=== PATIENT | male | born 1940 | race Caucasian/White ===

== ENCOUNTER 2025-04-02 18:52 | Inpatient (IN) | payer MEDICARE, OTHER ==
[~2025-04-02] VITALS: Ht 175.3 cm; Wt 55.3 kg
[2025-04-02] MEDS ORDERED: ONDANSETRON HCL/PF 4 MG/2 ML VIAL IVP PRN (22:30)
[2025-04-02] MEDS ORDERED: MAGNESIUM HYDROXIDE 30 ML UDC PO PRN (22:30)
[2025-04-02] MEDS ORDERED: MAG HYDROX/AL HYDROX/SIMETH 30 ML UDC PO PRN (22:30)
[2025-04-02] MEDS ORDERED: Z GUARD REMEDY 4 OZ OINT TP PRN (22:30)
[2025-04-03] VITALS: BP 113/63; TEMP 98.4
[2025-04-03] MEDS: IV NS 0.9% 1,000 ML IV ONE (00:26)
[2025-04-03 04:00] VITALS: BP 115/68; TEMP 98.6; O2SAT 98
[2025-04-03 07:21] LABS: BASOPHILS % (AUTO) 0.4 % (0.0-2.0); EOSINOPHILS # (AUTO) 0.5 K/uL (0.0-0.7); EOSINOPHILS % (AUTO) 6.6 % (0.0-6.0); HEMATOCRIT 35 % (39-51); HEMOGLOBIN 11.2 g/dL (13.5-17.5); LYMPHOCYTES # (AUTO) 1.4 K/uL (0.8-4.8); LYMPHOCYTES % (AUTO) 17.9 % (20.0-44.0); MEAN CORPUSCULAR HEMOGLOBIN 29 PG (26.0-33.0); MEAN CORPUSCULAR HGB CONC 32 g/dl (31.0-36.0); MEAN CORPUSCULAR VOLUME 90 fL (80-96); MONOCYTES # (AUTO) 0.8 K/uL (0.1-1.30); MONOCYTES % (AUTO) 9.6 % (2.0-12.0); NEUTROPHILS # (AUTO) 5.2 K/uL (1.8-8.9); NEUTROPHILS % (AUTO) 65.5 % (43.0-81.0); PLATELET COUNT (AUTO) 332 K/uL (150-450); RED BLOOD CELL COUNT(AUTO) 3.87 MIL/uL (4.5-6.0); RED CELL DISTRIBUTION WIDTH 20.1 % (11.5-15.0)
[2025-04-03 08:00] VITALS: BP 114/63; TEMP 97.9; O2SAT 99
[2025-04-03 08:10] LABS: CALCIUM, SERUM 8.7 mg/dL (8.5-10.1); CREATININE 1.5 mg/dL (0.6-1.3); MAGNESIUM 2.2 mg/dL (1.8-2.4); PHOSPHORUS 2.8 mg/dL (2.5-4.9); POTASSIUM 4.2 mmol/L (3.5-5.1)
[2025-04-03] MEDS ORDERED: FINA5TAB11 PO (09:10)
[2025-04-03] MEDS ORDERED: LEVO75TA7 PO (09:10)
[2025-04-03] MEDS ORDERED: LISI2.5T2 PO (09:10)
[2025-04-03] MEDS ORDERED: TAMS-12 PO (09:10)
[2025-04-03] MEDS ORDERED: ATOR20TA PO (09:10)
[2025-04-03] MEDS ORDERED: FOLI0.4T6 PO (09:10)
[2025-04-03] MEDS: PANTOPRAZOLE 40 MG TABLET.DR PO SCH (09:44)
[2025-04-03] MEDS: DOXYCYCLINE 100 MG in IV D5W 100 ML IV SCH (09:44)
[2025-04-03] MEDS: HEPARIN SODIUM, PORCINE 5000 UNITS/1 ML VIAL SQ SCH (09:45)
[2025-04-03] MEDS ORDERED: ASPI-1169 PO (10:59)
[2025-04-03 12:00] VITALS: BP 125/66; TEMP 97.7; O2SAT 98
[2025-04-03 13:20] LABS: CREATININE, URINE 64.5 MG/DL (30.0-125.0); URINE TOTAL PROTEIN 14.3 mg/dL (0-11.9)
[2025-04-03 16:00] VITALS: BP 122/76; TEMP 98.6; O2SAT 97
[2025-04-03] MEDS: CEFTRIAXONE 1 G in IV D5W 50 ML IV SCH (16:15)
[2025-04-03] MEDS: THERAHONEY GEL 1.5 OZ TUBE TP SCH (16:15)
[2025-04-03 20:00] VITALS: BP 129/74; TEMP 98.1; O2SAT 100
[2025-04-03] MEDS: TAMSULOSIN 0.4 MG CAP.SR.24H PO SCH (21:06)
[2025-04-03] MEDS: ATORVASTATIN 10 MG TABLET PO SCH (21:06)
[2025-04-04] VITALS: BP 130/60; TEMP 98.1; O2SAT 99
[2025-04-04 04:00] VITALS: BP 104/69; TEMP 98.1; O2SAT 98
[2025-04-04 07:08] LABS: BASOPHILS # (AUTO) 0.1 K/uL (0.0-0.2); BASOPHILS % (AUTO) 1.2 % (0.0-2.0); EOSINOPHILS # (AUTO) 0.4 K/uL (0.0-0.7); EOSINOPHILS % (AUTO) 4.9 % (0.0-6.0); HEMATOCRIT 37 % (39-51); HEMOGLOBIN 12.1 g/dL (13.5-17.5); LYMPHOCYTES # (AUTO) 1.3 K/uL (0.8-4.8); MEAN CORPUSCULAR HEMOGLOBIN 29 PG (26.0-33.0); MEAN CORPUSCULAR HGB CONC 33 g/dl (31.0-36.0); MEAN CORPUSCULAR VOLUME 88 fL (80-96); MONOCYTES # (AUTO) 0.7 K/uL (0.1-1.30); MONOCYTES % (AUTO) 8.4 % (2.0-12.0); NEUTROPHILS # (AUTO) 5.9 K/uL (1.8-8.9); NEUTROPHILS % (AUTO) 70.5 % (43.0-81.0); PLATELET COUNT (AUTO) 358 K/uL (150-450); RED BLOOD CELL COUNT(AUTO) 4.18 MIL/uL (4.5-6.0); RED CELL DISTRIBUTION WIDTH 19.8 % (11.5-15.0); WHITE BLOOD COUNT (AUTO) 8.4 K/uL (4.3-11.0)
[2025-04-04 07:35] LABS: ALBUMIN 2.7 g/dL (3.4-5.0); BILIRUBIN,TOTAL 0.5 mg/dL (0.2-1.0); CALCIUM, SERUM 8.4 mg/dL (8.5-10.1); CREATININE 1.4 mg/dL (0.6-1.3); MAGNESIUM 2.1 mg/dL (1.8-2.4); PHOSPHORUS 2.5 mg/dL (2.5-4.9); POTASSIUM 4.1 mmol/L (3.5-5.1); TOTAL PROTEIN, SERUM 6.2 g/dL (6.4-8.2)
[2025-04-04 08:30] VITALS: BP 117/63; TEMP 97.5; O2SAT 99
[2025-04-04] MEDS: FINASTERIDE (5 MG) 5 MG TABLET PO SCH (09:08)
[2025-04-04] MEDS: ASPIRIN 81 MG TAB.CHEW PO SCH (09:09)
[2025-04-04] MEDS: FOLIC ACID 1 MG TABLET PO SCH (09:09)
[2025-04-04] MEDS: LISINOPRIL (5MG) 5 MG TABLET PO SCH (09:09)
[2025-04-04] MEDS: LEVOTHYROXINE SODIUM 75 MCG TABLET PO SCH (09:09)
[2025-04-04] MEDS: ENSURE ENLIVE 237 ML LIQUID (VANILLA) PO SCH (11:07)
[2025-04-04 13:15] VITALS: BP 109/74; TEMP 97.7; O2SAT 98
[2025-04-04 16:05] VITALS: BP 91/60; TEMP 98; O2SAT 95
[2025-04-04] MEDS: ACETAMINOPHEN 325 MG TABLET PO PRN (16:12)
[2025-04-04 20:00] VITALS: BP_SYST 79; BP_SYST 90; BP_DIAS 46; BP_DIAS 68; TEMP 97.4; O2SAT 95
[2025-04-04] MEDS ORDERED: MUPIROCIN OINT 2% 22 GM TUBE ONE (22:13)
[2025-04-04] MEDS: MUPIROCIN OINT 2% 22 GM TUBE NS SCH (23:02)
[2025-04-05] VITALS (7 sets, daily range): BP systolic 90–116; BP diastolic 56–90; TEMP 97.3–99; O2SAT 94–98
[2025-04-05 05:12] LABS: PTH, INTACT 38 pg/mL (15-65)
[2025-04-05 07:42] LABS: BASOPHILS # (AUTO) 0.1 K/uL (0.0-0.2); BASOPHILS % (AUTO) 1.1 % (0.0-2.0); EOSINOPHILS # (AUTO) 0.4 K/uL (0.0-0.7); EOSINOPHILS % (AUTO) 5.5 % (0.0-6.0); HEMATOCRIT 33 % (39-51); HEMOGLOBIN 10.6 g/dL (13.5-17.5); LYMPHOCYTES # (AUTO) 1.2 K/uL (0.8-4.8); LYMPHOCYTES % (AUTO) 17.2 % (20.0-44.0); MEAN CORPUSCULAR HEMOGLOBIN 29 PG (26.0-33.0); MEAN CORPUSCULAR HGB CONC 32 g/dl (31.0-36.0); MEAN CORPUSCULAR VOLUME 90 fL (80-96); MONOCYTES # (AUTO) 0.7 K/uL (0.1-1.30); MONOCYTES % (AUTO) 10.3 % (2.0-12.0); NEUTROPHILS # (AUTO) 4.5 K/uL (1.8-8.9); NEUTROPHILS % (AUTO) 65.9 % (43.0-81.0); PLATELET COUNT (AUTO) 319 K/uL (150-450); RED BLOOD CELL COUNT(AUTO) 3.69 MIL/uL (4.5-6.0); RED CELL DISTRIBUTION WIDTH 20.1 % (11.5-15.0); WHITE BLOOD COUNT (AUTO) 6.9 K/uL (4.3-11.0)
[2025-04-05 07:58] LABS: ALBUMIN 2.6 g/dL (3.4-5.0); BILIRUBIN,TOTAL 0.4 mg/dL (0.2-1.0); CALCIUM, SERUM 8.3 mg/dL (8.5-10.1); CREATININE 1.4 mg/dL (0.6-1.3); MAGNESIUM 2.1 mg/dL (1.8-2.4); PHOSPHORUS 2.7 mg/dL (2.5-4.9); POTASSIUM 5.1 mmol/L (3.5-5.1); TOTAL PROTEIN, SERUM 5.7 g/dL (6.4-8.2)
[2025-04-06] VITALS: BP 107/59; TEMP 98.6; O2SAT 94
[2025-04-06 04:00] VITALS: BP 114/62; TEMP 98.6; O2SAT 94
[2025-04-06 07:56] LABS: BASOPHILS # (AUTO) 0.1 K/uL (0.0-0.2); BASOPHILS % (AUTO) 1.3 % (0.0-2.0); EOSINOPHILS # (AUTO) 0.4 K/uL (0.0-0.7); EOSINOPHILS % (AUTO) 5.9 % (0.0-6.0); HEMATOCRIT 31 % (39-51); HEMOGLOBIN 10.5 g/dL (13.5-17.5); LYMPHOCYTES # (AUTO) 1.1 K/uL (0.8-4.8); LYMPHOCYTES % (AUTO) 17.4 % (20.0-44.0); MEAN CORPUSCULAR HEMOGLOBIN 30 PG (26.0-33.0); MEAN CORPUSCULAR HGB CONC 34 g/dl (31.0-36.0); MEAN CORPUSCULAR VOLUME 89 fL (80-96); MONOCYTES # (AUTO) 0.6 K/uL (0.1-1.30); MONOCYTES % (AUTO) 10.3 % (2.0-12.0); NEUTROPHILS % (AUTO) 65.1 % (43.0-81.0); PLATELET COUNT (AUTO) 283 K/uL (150-450); WHITE BLOOD COUNT (AUTO) 6.1 K/uL (4.3-11.0)
[2025-04-06 08:00] VITALS: BP 98/58; TEMP 98.1; O2SAT 97
[2025-04-06 09:13] LABS: ALBUMIN 2.6 g/dL (3.4-5.0); BILIRUBIN,TOTAL 0.4 mg/dL (0.2-1.0); CALCIUM, SERUM 8.4 mg/dL (8.5-10.1); CREATININE 1.5 mg/dL (0.6-1.3); MAGNESIUM 2.1 mg/dL (1.8-2.4); PHOSPHORUS 2.8 mg/dL (2.5-4.9); TOTAL PROTEIN, SERUM 5.7 g/dL (6.4-8.2)
[2025-04-06 09:30] LABS: POTASSIUM 5.3 mmol/L (3.5-5.1)
[2025-04-06] MEDS: SODIUM ZIRCONIUM CYCLOSILICATE 5 GM POWD.PACK PO ONE (11:00)
[2025-04-06 12:07] VITALS: BP 115/66; TEMP 98.1; O2SAT 100
[2025-04-07 12:11] LABS: *SPE ALBUMIN 2.7 g/dL (2.9-4.4); *SPE ALPHA-1-GLOBULIN 0.3 g/dL (0.0-0.4); *SPE ALPHA-2-GLOBULIN 0.6 g/dL (0.4-1.0); *SPE BETA GLOBULIN 0.9 g/dL (0.7-1.3); *SPE GLOBULIN, TOTAL 2.6 g/dL (2.2-3.9); *SPE M-SPIKE Not Observed g/dL (Not Observed); *SPE PROTEIN TOTAL 5.3 g/dL (6.0-8.5); *SPEGAMMA GLOBULIN 0.8 g/dL (0.4-1.8)
== END 2025-04-06 15:41 | DRG 177 ==
LOC: TELE1 20:34
PROVIDERS: ATTEND Nurse Practitioner Acute Care
DX: J15.69 Pneumonia due to other Gram-negative bacteria (principal); N17.0 Acute kidney failure with tubular necrosis; E87.1 Hypo-osmolality and hyponatremia; H70.93 Unspecified mastoiditis, bilateral; E86.0 Dehydration; D64.9 Anemia, unspecified; E03.9 Hypothyroidism, unspecified; E78.5 Hyperlipidemia, unspecified; E87.5 Hyperkalemia; M89.8X9 Other specified disorders of bone, unspecified site; N40.0 Benign prostatic hyperplasia without lower urinary tract symptoms; H70.91 Unspecified mastoiditis, right ear; R53.1 Weakness; E83.9 Disorder of mineral metabolism, unspecified; L89.156 Pressure-induced deep tissue damage of sacral region; Z22.322 Carrier or suspected carrier of Methicillin resistant Staphylococcus aureus; I12.9 Hypertensive chronic kidney disease with stage 1 through stage 4 chronic kidney disease, or unspecified chronic kidney disease; N18.9 Chronic kidney disease, unspecified; Z96.641 Presence of right artificial hip joint
CPT/HCPCS: 36415; 71045-TC; 76770-TC; 80048-TC; 80053-TC; 82550-TC; 82570-TC; 83735-TC; 83970; 84100-TC; 84155; 84165; 84300-TC; 85025-TC; 87081-TC; 97116-TC; 97530-TC; A4223; G0378; J0696; J1644; J3490; J7030; J7060